=== PATIENT | female | born 1940 | race African-American/Black ===

== ENCOUNTER 2022-06-12 06:55 | Day surgery (SDC) | payer OTHER ==
--- NOTE | 2022-06-09 15:44 | RAD REPORT ---
EXAM DESCRIPTION: RAD - Chest Pa And Lat (2 Views) - 06/09/2022 3:33 pm CLINICAL HISTORY: pre op for surgery, pending hand surgery COMPARISON: None TECHNIQUE: Frontal and lateral views of the chest were obtained. FINDINGS: The lungs are clear. Heart size is normal and central vasculature is within normal limit s. No pleural effusion or pneumothorax seen. No acute bony finding noted. No aortic abnormality. IMPRESSION: No acute cardiopulmonary process.
[2022-06-09 16:12] LABS: Absolute Lymphocytes (CBC) 2.7 K/uL (0.7-4.9); Hematocrit 44.8 % (36.0-45.0); MPV 9.3 fL (7.6-11.3); Potassium 3.5 mmol/L (3.5-5.1); RBC Red Blood Cell Count 4.87 M/uL (3.86-4.86)
[2022-06-12] MEDS ORDERED: NA CHLORIDE 0.9% 1,000 ML ONE (07:17)
[2022-06-12] MEDS ORDERED: CEFAZOLIN SODIUM 1 GM/VIAL ONE (07:32)
[2022-06-12] MEDS ORDERED: BUPIVACAINE 0.5% PF 10 ML VIAL ONE (07:47)
[2022-06-12] MEDS ORDERED: propofoL 200 MG/20 ML VIAL IV ONE (08:17)
[2022-06-12] MEDS ORDERED: FENTANYL CITR 100 MCG/2 ML ONE (08:17)
[2022-06-12] MEDS ORDERED: KETOROLAC 30 MG/ML INJ ONE (08:18)
[2022-06-12] MEDS ORDERED: LIDOCAINE 2% MPF 5 ML VIAL ONE (08:18)
[2022-06-12] MEDS ORDERED: ONDANSETRON 4 MG/2 ML VIAL ONE (08:18)
[2022-06-12] MEDS ORDERED: dexAMETHasone 4 MG/ML VIAL ONE (08:20)
--- NOTE | 2022-06-12 09:03 | P.BOP ---
Preoperative diagnosis: right hand enlarging subQ mass Postoperative diagnosis: same Primary procedure: Excisional biopsy of right hand enlarging subQ mass 2x2cm Estimated blood loss: <5cc Specimen: mass Findings: mass Anesthesia: General Transferred to: Recovery Room Condition: Good
[2022-06-12 10:19] VITALS: BP 140/69; TEMP 96.8; O2SAT 99
--- NOTE | 2022-06-12 16:33 | EKG ---
Test Date: 2022-06-09 Test Time: 15:13:41 [employer] Teacher: LEXI MEASUREMENT RESULTS: Intervals: Rate: 70 SD: 198 QRSD: 90 QT: 364 QTc: 393 [place]: P: 54 SD: 198 QRS: 0 T: 86 INTERPRETIVE STATEMENTS: Sinus rhythm with occasional premature ventricular complexes Possible Anterior infarct, age undetermined Abnormal ECG No previous ECG available for comparison Electronically Signed On 06-12-22 16:28:53 SENIOR SALES OPERATIONS ANALYST by Navin Trujillo
--- NOTE | 2022-06-12 22:22 | OP ---
Date of Procedure: 06/12/2022 Surgeon: Kurt Toussaint MD Preoperative Diagnosis: Right hand enlarging subcutaneous mass, palmar area. Postoperative Diagnosis: Right hand enlarging subcutaneous mass, palmar area. Procedure: Excisional biopsy of right hand enlarging subcutaneous mass 2 x 2 cm. Estimated Blood Loss: Less than 5 cc. Anesthesia: General plus local. Specimen: Mass. Findings: Subcutaneous mass with skin involvement. Anesthesia: General plus local. Indications: This is a case of a 81-year-old patient who comes to us with a mass in the palmar aspec t of the hand, increasing in size, changing in shape, asymmetrical in shape and color. She wants vale t excised. It is coming from the subcutaneous tissue, does not seem to be attached to tendons or bon e. It is mobile, a very tender area, so she wants to have it done under anesthetic. The benefits, a lternatives, and risks of excisional biopsy fully explained to the patient which include, but not ponce ited to infection, bleeding, damage to adjacent structures, anesthesia complication, nonhealing wound , [place], and even . She also understands this may not relieve any symptoms. She might need more t brothers one surgical intervention. She understood, signed a consent. The area of concern was marked by me and the patient in the holding room. Procedure In Detail: The patient was brought to the operating room and placed in supine position. A nesthesia was done without complication. Hand area was prepped and draped in sterile fashion. A kristine e-out was called. Local anesthetic was applied followed by sharp incision of the skin in a wedge fas hion. Incision was carried down to the subcutaneous tissue area. Mass was removed. Area was irriga june. No tendon or bone exposed. Then, after that, we proceeded to close the area after hemostasis w ith a 3-0 nylon in a running fashion. Patient tolerated the procedure well. Patient sent to recover y in stable condition. MARITZA/KONRAD Voice ID: [id number] Report ID: [id number]
--- NOTE | 2022-06-12 22:37 | OP ---
Surgeon: Kurt Toussaint MD Diagnosis: Right hand enlarging subcutaneous mass. Procedure: Excision and biopsy of right hand enlarging subcutaneous mass. Disposition: Home. Activity: As tolerated. Instructions: No heavy lifting. Follow up in my office in 1 week. Call for appointment at [phone] . Keep area dry for 48 hours, then may shower. If she uses her hand, she only can clean it with run briana clean water, not doing the dishes or putting the hand in dirty area. She understood that part. MARITZA/KONRAD Voice ID: [id number] Report ID: [id number]
== END 2022-06-12 10:15 | disposition home or self-care (01) ==
LOC: OR 06:55
PROVIDERS: ATTEND Surgery
PROC: 0JBJ0ZZ Excision of Right Hand Subcutaneous Tissue and Fascia, Open Approach (ICD-10-PCS; principal; 2022-06-12 08:30)
DX: D23.61 Other benign neoplasm of skin of right upper limb, including shoulder (principal)
CPT/HCPCS: 36415; 71046; 80048; 82947; 85025; 88305; 93005; J0690; J1100; J2001; J2405; J2704; J3010; J7030